=== PATIENT | female | born 2000 | race Caucasian/White ===

== ENCOUNTER 2023-05-30 16:42 | Outpatient (CLI) | payer BC, SELFPAY ==
[2023-05-30 17:40] VITALS: BP 123/74; PULSE 69; TEMP 36.6
[2023-05-30 18:26] LABS: ROM Plus Negative
== END 2023-05-30 18:48 | disposition home or self-care (01) ==
LOC: BCD 16:49 → OBS 17:53
PROVIDERS: PCP Family Medicine; Visit Provider Family Medicine
DX: O47.03 False labor before 37 completed weeks of gestation, third trimester (principal); Z3A.39 39 weeks gestation of pregnancy
CPT/HCPCS: 84112; 59025; G0378

== ENCOUNTER 2023-06-04 07:07 | Inpatient (IN) | payer BC, SELFPAY ==
[2023-06-04] VITALS (145 sets, daily range): BP systolic 112–136; BP diastolic 62–86; PULSE 0–120; RESP 16–18; TEMP 36.4–36.8; O2SAT 98
--- NOTE | 2023-06-04 07:10 | W.PM.OBHPL1 ---
Date of service: 06/04/23 Time of Service: 07:10 OB-HPI Labor/Delivery History of Present Illness Reason for Visit: Induction Chief Complaint: Scheduled Induction of Labor Indication for Induction: Post Date and Other. Comments: Partner due to travel home to [place] in 72 hrs. Several conversations in office re pros/cons of induction so he can be present for the . They are aware of risks of misoprostol and/or pitocin including FHT abnormalities/decels/ stress which might lead to inc risk of c/section. Maternal discomfort if hyperstim - could lead to dec in pit dose or d/c of pit all together. All questions answered. No URI, fever, NARVAEZ, visual issues, GDM, HTN, ROM. NST 4 days ago - cat 1 Slept some last noc - eating, bladder, bowels all nl. Given non-mediacl indication for induction, will be flexible with effort - could shift to staged with shared decision making. Plan for transition to pitocin mid day pending ctx pattern. Encourage ambulation this AM post miso dose. Informed Consent Informed Consent: Induction of Labor and Risk,Benefits,Alternatives Discussed PFSH Social History Smoking/Tobacco Use Status: Never Smoking risk assessment performed?: Yes Alcohol Intake: never Substance use type: does not use Housing: house Do you feel safe at home: Yes Do you feel safe in your relationship?: Yes History History 2 Para 1 Hx # Term Pregnancies Multiple births Hx # Pregnancies Ectopic pregnancies AB induced Hx Number of Living Children AB spontaneous Meds Allergies and Home Medications Allergies Allergy/AdvReac Type Severity Reaction Status Date / Time No Known Allergies Allergy Unverified 01/01/17 06:33 Home Medications Medication Instructions Recorded Confirmed Type B-Complex (vitamin B complex) 1 ea PO 01/01/17 History Iron (ferrous sulfate) 325 mg (65 325 mg PO 01/01/17 History mg iron) tablet (ferrous sulfate) multivitamin 1 ea PO 01/01/17 History Exam Physical Exam Vital signs: Temp Pulse Resp BP 36.4 C L 82 16 123/79 06/04/23 06:17 06/04/23 06:14 06/04/23 06:17 06/04/23 06:14 Narrative: bright, alert, comfortable HEENT - benign Lungs - clear CVS - reg, no murmur ABD - 38 cm FH, non-tender, VTX by mega EXT - no edema Detailed Labor and Delivery Exam Dilation: 2 Effacement (%): 70 station: -2 Position: OA Cervix position: anterior Consistency: soft Currie Score: Cervical Points Exam 0 1 2 3 Dilation Closed 1-2cm 3-4 cm 5-6cm Effacement 0-30% 40-50% 60-70% 80% Consistency Firm Medium Soft Station -3 -2 -1,0 +1,+2 Position Posterior Mid Anterior CURRIE Score(Cervical Ripeness Score): 8 Amniotic Membrane Status: Intact Contraction Frequency(min): none Comments: Bishops = 8 NST = Cat 1 Fetus A Heart Rate Baseline: 120 Monitor Accelerations: 15 X 15 Monitor Decelerations: None Variability: Moderate (6-25 BPM) Presentation: Vertex Categories: Category I Est. Weight: 3400 g Assessment Note: Reassuring picture Risk Assessment Risk for Shoulder Dystocia Increased Risk?: No Counseling: per pn records Risk for Pre-Eclampsia Daily Dose ASA Indicated: No Risk for Post- Hemorrhage At Risk?: No Counseled re: Active [place]: Yes [place] [facility] [place] Risks Reviewed Risks Reviewed Upon Admission: Yes
[2023-06-04] MEDS: miSOPROStol 25 MCG TAB PO (07:29)
[2023-06-04 07:41] LABS: HCT 39.6 % (36.0-46.0); HGB 13.7 g/dL (11.2-15.7); MCH 30.6 pg (27.0-33.0); MCHC 34.6 % (32.0-36.0); MCV 88 fL (80-95); MPV 9.7 fL (8.0-11.0); Platelet Count 219 10^3/uL (130-400); RBC 4.48 10^6/uL (3.93-5.22); RDW 12.7 % (11.7-14.6); RDW-SD 41.3 fL; WBC 14.35 10^3/uL (4.4-10.8)
[2023-06-04] MEDS: Normal Saline Flush 10 ML SYR IVP ×2 (08:39→12:34)
--- NOTE | 2023-06-04 11:28 | W.PM.OBNL1 ---
Date of service: 06/04/23 Time of Service: 11:28 Informed Consent Informed Consent: Induction of Labor and Risk,Benefits,Alternatives Discussed Pelvic Exam Dilation: 3 Effacement (%): 60 station: -2 Cervix Position: mid Consistency: soft Vaginal Exam Presentation: Cephalic Contractions Monitor Mode: External Contraction Frequency(min): 5-6 Contraction Duration(sec): 60 Intensity: Mild Fetus A Monitor: External (US) Heart Rate Baseline: 120 Presentation: Cephalic Variability: Moderate (6-25 BPM) Categories: Category I FHR Rhythm: Regular Characteristics: Normal Accelerations: 15 X 15 Decelerations: None Amniotic Membrane Status: Intact Assessment and Plan Assessment and plan (1) Term : Status: Acute Assessment and plan: Ami is doing well with mild contractions after one dose of miso. Some cervical change. After discussion we decided to start pitocin. FHT category 1. Will start GBS prophylaxis as well as she is a multip. Objective Abnormal lab results 06/04/23 Range/Units 07:30 WBC 14.35 H (4.4-10.8) 10^3/uL Temp Pulse Resp BP Pulse Ox 36.8 C 90 16 125/84 98 06/04/23 09:16 06/04/23 11:24 06/04/23 08:02 06/04/23 11:17 06/04/23 08:02 Laboratory Results WBC 14.35 10^3/uL (4.4-10.8) H 06/04/23 07:30 RBC 4.48 10^6/uL (3.93-5.22) 06/04/23 07:30 Hgb 13.7 g/dL (11.2-15.7) 06/04/23 07:30 Hct 39.6 % (36.0-46.0) 06/04/23 07:30 MCV 88 fL (80-95) 06/04/23 07:30 MCH 30.6 pg (27.0-33.0) 06/04/23 07:30 MCHC 34.6 % (32.0-36.0) 06/04/23 07:30 RDW 12.7 % (11.7-14.6) 06/04/23 07:30 Plt Count 219 10^3/uL (130-400) 06/04/23 07:30 MPV 9.7 fL (8.0-11.0) 06/04/23 07:30 Patient ABO/Rh A Positive 06/04/23 07:30 Antibody Screen NEGATIVE 06/04/23 07:30 Vital Signs Reviewed: Yes Subjective Patient Reports: No new Complaints Interval history since last seen: Mild contractions every 5-6 minutes Results Hemoglobin/Hematocrit: Hgb 13.7 g/dL (11.2-15.7) 06/04/23 07:30 Hct 39.6 % (36.0-46.0) 06/04/23 07:30 Abnormal Lab Findings: Abnormal Labs 06/04/23 07:30 WBC 14.35 H
[2023-06-04] MEDS: Lactated Ringers 1,000 ML 125 ML IV (12:25)
[2023-06-04] MEDS: Penicillin G POT. 5,000,000 UNITS in Normal Saline 100 ML 200 UNITS IVPB (12:26)
[2023-06-04] MEDS: Oxytocin/Normal Saline 30 UNIT/500 ML BAG 2 UNITS IV (12:27)
--- NOTE | 2023-06-04 15:37 | W.PM.OBNL1 ---
Date of service: 06/04/23 Time of Service: 15:37 Informed Consent Informed Consent: Induction of Labor and Risk,Benefits,Alternatives Discussed Pelvic Exam Dilation: 5 Effacement (%): 70 station: -2 Cervix Position: anterior Consistency: soft Vaginal Exam Presentation: Vertex Contractions Monitor Mode: External Contraction Frequency(min): 3 Contraction Duration(sec): 60 Intensity: Moderate/Strong Fetus A Monitor: External (US) Heart Rate Baseline: 120 Presentation: Vertex Variability: Moderate (6-25 BPM) Categories: Category I FHR Rhythm: Regular Characteristics: Normal Accelerations: 15 X 15 Decelerations: None and Variable Recurrence: Intermittent Amniotic Membrane Status: Intact Assessment and Plan Assessment and plan (1) : Status: Acute Assessment and plan: Ami is progressing well, now at 5/70/-2. Contractions are strong, with pit at 4u. She has had 1 dose on Penicillin. Category 1 strip, vitals normal. No concerns. Continue current plan. Qualifiers: Weeks of gestation: 40 weeks Qualified Code(s): Z3A.40 - 40 weeks gestation of Objective Abnormal lab results 06/04/23 Range/Units 07:30 WBC 14.35 H (4.4-10.8) 10^3/uL Temp Pulse Resp BP Pulse Ox 36.8 C 75 16 123/81 98 06/04/23 09:16 06/04/23 15:36 06/04/23 08:02 06/04/23 14:32 06/04/23 08:02 Laboratory Results WBC 14.35 10^3/uL (4.4-10.8) H 06/04/23 07:30 RBC 4.48 10^6/uL (3.93-5.22) 06/04/23 07:30 Hgb 13.7 g/dL (11.2-15.7) 06/04/23 07:30 Hct 39.6 % (36.0-46.0) 06/04/23 07:30 MCV 88 fL (80-95) 06/04/23 07:30 MCH 30.6 pg (27.0-33.0) 06/04/23 07:30 MCHC 34.6 % (32.0-36.0) 06/04/23 07:30 RDW 12.7 % (11.7-14.6) 06/04/23 07:30 Plt Count 219 10^3/uL (130-400) 06/04/23 07:30 MPV 9.7 fL (8.0-11.0) 06/04/23 07:30 Patient ABO/Rh A Positive 06/04/23 07:30 Antibody Screen NEGATIVE 06/04/23 07:30 Subjective Patient Reports: New Complaints Interval history since last seen: Increase in intensity of contractions, breathing through them. Results Hemoglobin/Hematocrit: Hgb 13.7 g/dL (11.2-15.7) 06/04/23 07:30 Hct 39.6 % (36.0-46.0) 06/04/23 07:30 Abnormal Lab Findings: Abnormal Labs 06/04/23:30 WBC 14.35 H
[2023-06-04] MEDS: Calcium Carbonate *TUMS* 500 MG CHEW PO (15:48)
[2023-06-04] MEDS: Oxytocin/Normal Saline 30 UNIT/500 ML BAG 95 UNITS IV (16:30)
--- NOTE | 2023-06-04 16:35 | W.OBDELIVERY ---
Date of service: 06/04/23 Time of Service: 16:35 OB Labor/ Delivery Information Baby A Delivery Delivery Method: Spontaneaous Presentation: Vertex Cephalic Position: Vertex Vertex Position: Left Occipital Anterior Breech Position: N/A Cord Description-Baby A: 3 Vessels Amniotic Fluid: Clear Estimated Blood Loss: 50 Delivery Outcome: Liveborn Infant Transferred: Remains with Mother Providers Doctor: Kyle Rios Internal Medicine Doctor: Kyle Rios Nurse: Tammy Serna Labor/Delivery Information Number of Babies in Womb: 1 Steroids Given: None Reason Steroids Not Administered: N/A Group Beta Strep: Positive Antibiotics Administered: Yes Number of Doses of Antibiotics: 1 Rubella Status: Immune Blood Type: A+ Varicella Immunity: Not Tested Born En Route: No Maternal Complications: None Shoulder Dystocia: No Stages of Labor Onset of Labor Date: 06/04/23 Complete Dilatation Date: 06/04/23 ROM Baby A: 06/04/23 ROM Baby A: 16:12 Delivery Date-Baby A: 06/04/23 Delivery Time-Baby A: 16:24 Placenta Delivery Date-Baby A: 06/04/23 Placenta Delivery Time-Baby A: 16:29 Labor-Stage 3 Duration: 5 minutes Placenta Cultured: No Placenta Status: Delivered Baby A Gender: Female Gestational Status: Term (39-41.6 wks) Gestational Age in Weeks/Days: 40 Weeks and 2 Days Score-1 Minute Interval(Baby A) Heart Rate-1 minute: 100 BPM or Greater Respiratory Effort- 1 minute: Slow Respiration/Weak Cry Muscle Tone-1 minute: Active Movement Reflex Response-1 minute: Prompt Response Color-1 minute: Pallor or Cyanosis Score-5 Minute Interval(Baby A) Heart Rate- 5 minute: 100 BPM or Greater Respiratory Effort-5 minute: Spontaneous/Strong Cry Muscle Tone-5 minute: Active Movement Reflex Response-5 minute: Prompt Response Color-5 minute: Bluish Hands or Feet Note: Emilys contractions had intensified and she asked to be checked. She had progressed to 7cm and had a bulging bag that was easily ruptured. Large amount of clear fluid came. Babies head came down immediately. She then progressed quite quickly to complete. FHT was category 1 throughout. She pushed for only 5 minutes and delivered a vigorous baby girl in KELSY position. Baby was immediately put on moms chest. After pulsations had stopped, cord was clamped and cut. Placenta was delivery intact, 3 vessel cord. Pitocin run open during placental delivery. There were no lacerations. Minimal bleeding. Unfortunately only 1 dose of antibiotics was given so she will need to be monitored for 48 hours. Otherwise anticipate routine post care. She intends to breast feed and baby has already latched.
[2023-06-04] MEDS: Ibuprofen 600 MG TAB PO ×2 (17:23→23:55)
[2023-06-04] MEDS: Acetaminophen 325 MG TAB 650 MG PO ×2 (17:23→23:55)
[2023-06-04] MEDS: Hamamelis Leaf/Glycerin 100 EACH BOX PR (17:24)
[2023-06-04] MEDS: Dibucaine 1% 28 GM TUBE TP (17:24)
[2023-06-05 01:13] VITALS: BP 121/64; PULSE 90; RESP 18; TEMP 36.7
[2023-06-05 08:29] VITALS: BP 113/73; PULSE 91; TEMP 36.8
[2023-06-05] MEDS: Acetaminophen 325 MG TAB 650 MG PO ×2 (08:33→18:51)
[2023-06-05] MEDS: Ibuprofen 600 MG TAB PO ×2 (08:33→18:52)
--- NOTE | 2023-06-05 15:37 | W.PM.OBPNV1 ---
Date of service: 06/05/23 Time of Service: 15:37 Subjective Subjective Interval history: mom is pleased, Got shower, doing all self care Expected perineal discomfort - tylenol effective BF off to good start - got some coaching on latch Lochia decreasing UO good no pedal edema O: Bright, rested, comfortable Abd - soft, non tender Ut 2 below uterus, non-tender affect and energy good no pedal edema A: Excellent pp course plan d/c tomorrow with infant cont BF support discuss FP needs prior to d/c S. [place] Exam Physical Exam Vital signs: Temp Pulse Resp BP Pulse Ox 36.8 C 91 H 18 113/73 98 06/05/23 08:29 06/05/23 08:29 06/05/23 01:13 06/05/23 08:29 06/04/23 08:02 Results Hemoglobin/Hematocrit: Hgb 13.7 g/dL (11.2-15.7) 06/04/23 07:30 Hct 39.6 % (36.0-46.0) 06/04/23 07:30 Abnormal Lab Findings: Abnormal Labs 06/04/23 07:30 WBC 14.35 H
[2023-06-05 20:19] VITALS: BP 110/73; PULSE 91; RESP 18; TEMP 36.7
[2023-06-06 02:00] VITALS: BP 113/77; PULSE 73; TEMP 36.7
--- NOTE | 2023-06-06 08:28 | W.PM.OBDISCH ---
Date of service: 06/06/23 Time of Service: 08:28 DS: Diagnosis Discharge Diagnosis (1) : Status: Acute Asessment and Plan: term . Straightforward pp course Breat feeding off to great start. Doing all self care PO intake, bowels, urine all nl. Expected utering cramping with nursing and dec in lochia O: Abd - soft, non tender firm ut 2-3 below umb no edema skin - nl A: Nl pp course BF ging well no evidence pp depression P: F/U set in 48 hrs - will administer [place] Dep screen Breast pump in place SCristel Payne Discharge Plan Disposition Condition: Good Discharge Details Reason For Visit: Post Dates Admit Date/Time: 06/04/23 07:07 Admit Provider: Hasmukh Payne Attending Provider: Hasmukh Payne Primary Care Provider: Hasmukh Payne Hospital Course Hospital Course: as above Discussed family planning - no current plans beyond nursing - Had SE with OCP's Home Meds and New Rx's Prescriptions: No Action ferrous sulfate [Iron (ferrous sulfate)] 325 MG tablet 325 mg PO vitamin B complex [B-Complex] 1 EACH tablet 1 ea PO multivitamin 1 EACH capsule 1 ea PO Discharge Instructions Activity:: Activity as Tolerated Activity:: Activity as Tolerated Equipment/Supplies:: breast pump Diet:: As Tolerated Discharge Data Discharge Physician: Hasmukh Payne OB:DS Summary Summary Vaginal Delivery Method: Spontaneaous Episiotomy Description: None Laceration Description: None Laceration Extension: N/A Contraception Discussed Contraception Discussed: Yes, [place] Infant Gender-Baby A: Female weight: 3240 g Status at Discharge Functional status at discharge: independent ambulation Overall status at discharge: patient is back to baseline Mental Status: mental status grossly normal Speech and Movement: speech and movement normal Mood: congruent mood Affect: normal affect Quality:SDOH Health Related Social Needs: No Data to Display Exam Physical Exam Vital signs: Temp Pulse Resp BP Pulse Ox 36.7 C 73 18 113/77 98 06/06/23 02:00 06/06/23 02:00 06/05/23 20:19 06/06/23 02:00 06/04/23 08:02 PFSH All Active Problems (Updated 06/04/23 @ 15:39 by Kyle Rios) (Acute) Term (Acute) Social History Smoking/Tobacco Use Status: Never Smoking risk assessment performed?: Yes Alcohol Intake: never Drug use: Never Substance use type: does not use Housing: house Do you feel safe at home: Yes Do you feel safe in your relationship?: Yes History History 2 Para 1 Hx # Term Pregnancies Multiple births Hx # Pregnancies Ectopic pregnancies AB induced Hx Number of Living Children AB spontaneous DS: Data Vitals/I&O Vitals and I&O: Vital Signs Temperature 36.7 C 06/06/23 02:00 Temperature Source Oral 06/06/23 02:00 Pulse 73 06/06/23 02:00 Pulse Rhythm Regular 06/05/23 20:19 Respiratory Rate 18 06/05/23 20:19 Blood Pressure 113/77 06/06/23 02:00 Blood Pressure Mean 89 06/06/23 02:00 Pulse Oximetry 98 06/04/23 08:02 Oxygen Delivery Method Room Air 06/04/23 08:02 Oxygen Flow Rate 0 06/04/23 08:02 Pain Level 3 06/04/23 23:55 Intake & Output 06/05/23 06/05/23 06/06/23 11:59 23:59 11:59 Output Total 125 / 125 Balance -125 / -125 Output: Urine 125 / 125 Other: Urine Color Pale
[2023-06-06 09:14] VITALS: BP 112/76; PULSE 98; RESP 16; TEMP 37.1
== END 2023-06-06 12:45 | disposition home or self-care (01) | DRG 807 ==
PROVIDERS: Admitting Provider Family Medicine; PCP Family Medicine; Visit Provider Family Medicine
DX: O48.0 Post-term pregnancy (principal); Z37.0 Single live birth; Z3A.40 40 weeks gestation of pregnancy
CPT/HCPCS: 00123; 36415; 85027; 86850; 86900; 86901; 59200; J2540; J3490

== ENCOUNTER 2023-06-19 11:11 | Emergency (ER) | payer BC, SELFPAY ==
[2023-06-19 11:15] VITALS: BP 131/89; PULSE 60; RESP 16; O2SAT 97
--- NOTE | 2023-06-19 11:23 | ED.GENADUL_ITS ---
Discharge Plan Disposition Patient Disposition: Home Condition: Stable Discharge Details Clinical Impression: Migraine syndrome Primary Care Provider: Hasmukh Payne ED Provider: Esteban Choi Home Meds and New Rx's Prescriptions: No Action multivitamin 1 EACH capsule 1 ea PO DAILY Discharge Instructions Instructions: Metoclopramide (By mouth), Sumatriptan (By mouth), Migraine Headache (ED) Additional Instructions: You were seen in the emergency department for your migraine syndrome and right- sided headache. There was no evidence for preeclampsia or significant infection on your laboratory studies, your electrolytes are within normal limits I do not suspect infectious etiology, you are neurologically intact. We provided you with IV Tylenol as well as a headache and nausea medicine called Reglan which should be taken with Benadryl, take 1000 mg of Tylenol every 6 hours, residential in between Tylenol doses take 400 mg of ibuprofen also every 6 hours. Take the provided metoclopramide or Reglan with a 25 mg tablet of Benadryl later this evening, you can also take the second dose of the 25 mg tablet of sumatriptan which is a migraine prevention medicine that we discussed. Please return to the emergency department for any severe increase in headache, intractable nausea or vomiting, we discussed that your [employer] would be following up with you in the next couple days you may return to the ER, we discussed possibility of CT head without contrast today but you will watchfully wait at home and return for any worsening or changes for possible CT scan at that time. Referrals: Kyle Rios [ CONSULTING PHYSICIAN] - Hasmukh Payne [Primary Care Provider] - Discharge Data Discharge Date/Time-TO BE ENTERED AT DEPARTURE: 06/19/23 14:39 HPI General Date/Time Provider Initiated Documentation: 06/19/23 11:23 . HPI Narrative: 23 year-old female presents to ED today by POV/ambulating with a chief complaint of persistent headache for a week, worse since last night, pain causing some na usea/vomiting. Quality described as waves of headache pain R sided, has history of migraines, no radiation to chest pain, palpitations, active vomiting, visual changes, syncope. Severity is described as 8-9/10. Palliating factors include OTC analgesics without relief. Provoking factors include nothing specific. Events leading up to the incident/Associated Symptoms: Patient is two weeks post- from her second child, uncomplicated . Patient not anticoagulated. Related Data Home Medications Medication Instructions Recorded Confirmed multivitamin 1 ea PO DAILY 01/01/17 06/19/23 Allergies Allergy/AdvReac Type Severity Reaction Status Date / Time No Known Allergies Allergy Unverified 06/19/23 11:17 General Stated Complaint: Headache MILLY: 3 Review of Systems All systems reviewed & are unremarkable except as noted in HPI and below Exam Narrative Exam Narrative: GENERAL APPEARANCE: Well-nourished, non-toxic, awake and alert, atraumatic, no acute distress. SKIN: Warm, pink, dry, intact, without rashes/lesions/ulcerations. HEAD: Normocephalic, atraumatic, normal hair distribution for gender/age, no tenderness to light touch in R temporal area EYES: Pupils PERRLA, EOMs intact without nystagmus, normal conjunctiva, no exudates on lids/lashes. ENT: Nares patent, no circumoral cyanosis, no facial swelling NECK: Supple, trachea midline, painless cervical ROM. LUNGS/CHEST: Lungs CTA bilaterally- no rhonchi/rales/wheezes diffusely, non- labored respirations, normal A/P diameter, symmetrical expansion, no chest wall deformity HEART (CV/PV): Regular rate and rhythm without murmur, no peripheral edema, no JVD. ABDOMEN: Soft, non-distended, no guarding. MSK: Normal ROM, no swelling/deformity to bilateral UEs or LEs, moving all extremities without weakness, no cyanosis, spine midline without tenderness, normal curvature. NEURO: Mental Status AAOx4 - alert to person, place, time, events No facial droop, no forehead involvement, no dysmetria with cerebellar testing Motor: No focal weakness - strength 5/5 in bilateral UEs and LEs, proximal and distal, symmetric. Sensory: sensation intact to light touch globally. Gait normal: patient ambulated without ataxia into ED room. PSYCH: euthymic, cooperative, pleasant, appropriate speech Course Vital Signs Vital signs: Vital Signs Pulse 60 06/19/23 11:15 Respiratory Rate 16 06/19/23 11:15 Blood Pressure 131/89 06/19/23 11:15 Pulse Oximetry 97 06/19/23 11:15 Pulse 60 06/19/23 11:15 Respiratory Rate 16 06/19/23 11:15 Blood Pressure 131/89 06/19/23 11:15 Blood Pressure Position Sitting 06/19/23 11:15 Pulse Oximetry 97 06/19/23 11:15 Oxygen Delivery Method Room Air 06/19/23 11:15 Oxygen Flow Rate 0 06/19/23 11:15 Pain Level 9 06/19/23 11:15 Medical Decision Making This dictation utilizes [id number] dictation software and may contain unedited grammatical errors. 23 y/o F presents to ED today with a chief complaint of NARVAEZ for the past week, worse since last night with nausea/vomiting- is two weeks post-, concern for preeclampsia by OBGYN so encouraged ED evaluation. Patient had an uncomplicated , second child, denies fever/neck stiffness, palpitations. Patients' medical history: negative, otherwise healthy. Family and social history: noncontributory. Pertinent exam findings / vital signs include normotensive, benign cardiopulmonary exam, neuro intact, no tenderness to light touch at R temporal area. Differential / pathologies of concern include preeclampsia, migraine syndrome, temporal arteritis/vasculitis, tension NARVAEZ. Diagnostic studies of: -CBC, CMP, Lactate, Magnesium, CRP/ESR, UA. -CBC no leukocytosis -CMP wnl -Mg++ wnl -inflammatory markers negative -UA no proteinuria Interventions of: -IVF, Tylenol, Toradol, Reglan, Benadryl, Sumatriptan. ED Course/Assessment/Plan: 23-year-old female who is 2 weeks presents with headache for about a week that has become progressively worse since last night with some vomiting about 7 times since last night. There is no sign of preeclampsia on her workup, she has no scalp tenderness to light touch and there is no signs of infectious etiology or meningismus. Patient did not have an epidural and had an uncomplicated , it is her second child. I provided her with migraine medications of Tylenol, Reglan, Toradol, Benadryl, IV fluids, and sumatriptan, the patient states her headache has not changed significantly, she has a normal neuroexam. We discussed possibility of CT head without contrast but she wanted to watchfully wait and will return for any failure to resolve or worsening for head CT at that time to avoid unnecessary radiation. There is no protein in her urine, I did follow-up by phone with her [employer] who will follow-up with the patient in the next couple days. Findings not consistent with preeclampsia, meningismus, vasculitis, neurologic abnormality. Disposition of Migraine Syndrome. Patient verbalized understanding of the plan and return to ED criteria and engaged in shared decision making. Medical Records Medical records reviewed: Yes I reviewed the patient's medical records. Lab Data Lab results reviewed: Yes I reviewed the patient's lab results. Labs: Laboratory Tests Range/Units 06/19/23 06/19/23 11:37 13:57 WBC (4.4-10.8) 10^3/uL 7.14 RBC (3.93-5.22) 10^6/uL 5.03 Hgb (11.2-15.7) g/dL 15.1 Hct (36.0-46.0) % 44.8 MCV (80-95) fL 89 MCH (27.0-33.0) pg 30.0 MCHC (32.0-36.0) % 33.7 RDW (11.7-14.6) % 11.7 Plt Count (130-400) 10^3/uL 332 MPV (8.0-11.0) fL 9.1 Immature Gran % 0.1 Neutrophils % 48.8 Lymphocytes % 40.6 Monocytes % 6.6 Eosinophils % 2.8 Basophils % 1.1 Nucleated RBC % (0.0-0.3) % 0.0 Absolute Neutrophils (1.2-6.7) 10^3/uL 3.48 Absolute Lymphocytes (1.2-3.4) 10^3/uL 2.90 Absolute Monocytes (0.1-0.8) 10^3/uL 0.47 Absolute Eosinophils (0.0-0.7) 10^3/uL 0.20 Absolute Basophils (0.0-0.2) 10^3/uL 0.08 ESR (0-20) mm/hr 20 VBG Lactate (0.6-1.4) mmol/L 1.0 Sodium (136-145) mmol/L 139 Potassium (3.5-5.1) mmol/L 4.2 Chloride (98-107) mmol/L 103 Carbon Dioxide (21.0-32.0) mmol/L 25.5 Anion Gap (3-11) mmol/L 10.5 BUN (7-18) mg/dL 12 Creatinine (0.55-1.02) mg/dL 0.9 Est GFR (CKD-EPI 2020) (mL/min/1.73m2) 91.55 Glucose (74-106) mg/dL 73 L Calcium (8.5-10.1) mg/dL 9.2 Magnesium (1.8-2.4) mg/dL 2.1 Total Bilirubin (0.2-1.0) mg/dL 0.4 AST (15-37) U/L 18 ALT (14-59) U/L 34 Alkaline Phosphatase (46-116) U/L 170 H C-Reactive Protein (<or=0.5) mg/dL < 0.50 Total Protein (6.4-8.2) g/dL 7.6 Albumin (3.4-5.0) g/dL 3.4 Lipase (16-77) U/L 62 Urine Color (Yellow) Yellow Urine Clarity (Clear) Clear Urine pH (5-8) 6.5 Ur Specific [place] (1.005-1.025) 1.010 Urine Protein (Neg-Trace) mg/dL Negative Urine Ketones (Negative) mg/dL Negative Urine Blood (Negative) Trace-intact H Urine Nitrite (Negative) Negative Urine Bilirubin (Negative) Negative Urine Urobilinogen (Up to 0.2) mg/dL 0.2 Ur Leukocyte Esterase (Negative) Negative Urine RBC (0-2) HPF 0-2 Urine WBC (0-5) HPF 0-2 Ur Epithelial Cells (Negative) HPF Rare Urine Crystals (Negative) HPF Negative Urine Bacteria (Negative) HPF Negative Urine Casts (Negative) LPF Negative Urine Mucus (Negative) Negative Ur Culture Indicated? No Urine Glucose (Negative) mg/dL Negative Quality:SDOH Health Related Social Needs: No Data to Display PFSH All Active Problems (Updated 06/19/23 @ 14:24 by NARCISO Ness) Migraine syndrome (Acute) Social History Smoking/Tobacco Use Status: Never Smoking risk assessment performed?: Yes Alcohol Intake: never Drug use: Never Substance use type: does not use Housing: house Do you feel safe at home: Yes Do you feel safe in your relationship?: Yes History History 2 Para 1 Hx # Term Pregnancies Multiple births Hx # Pregnancies Ectopic pregnancies AB induced Hx Number of Living Children AB spontaneous
[2023-06-19 11:32] VITALS: PULSE 67; RESP 15; O2SAT 99
[2023-06-19] MEDS: diphenhydrAMINE 50 MG/ML VIAL 25 MG IVP (11:49)
[2023-06-19] MEDS: ACETAMINOPHEN 1,000 MG/100 ML BTL 400 MG IVPB (11:50)
[2023-06-19] MEDS: Metoclopramide 10 MG/2 ML VIAL IVP (11:50)
[2023-06-19] MEDS: Lactated Ringers 1,000 ML 1000 ML IV (11:50)
[2023-06-19 12:12] LABS: Abs Immature Grans 0.01 10^3/uL (0.0-0.06); Absolute Basophil Count 0.08 10^3/uL (0.0-0.2); Absolute Monocyte Count 0.47 10^3/uL (0.1-0.8); Absolute Neutrophil Count 3.48 10^3/uL (1.2-6.7); Basophils % 1.1; Eosinophils % 2.8; HCT 44.8 % (36.0-46.0); HGB 15.1 g/dL (11.2-15.7); Immature Grans % 0.1; Lymphocytes % 40.6; MCHC 33.7 % (32.0-36.0); MCV 89 fL (80-95); MPV 9.1 fL (8.0-11.0); Monocytes % 6.6; Neutrophils % 48.8; Platelet Count 332 10^3/uL (130-400); RBC 5.03 10^6/uL (3.93-5.22); RDW 11.7 % (11.7-14.6); RDW-SD 37.4 fL; WBC 7.14 10^3/uL (4.4-10.8)
[2023-06-19 12:19] LABS: ESR 20 mm/hr (0-20)
[2023-06-19 12:38] LABS: ALT 34 U/L (14-59); AST 18 U/L (15-37); Albumin 3.4 g/dL (3.4-5.0); Alkaline Phosphatase 170 U/L (46-116); Anion Gap 10.5 mmol/L (3-11); BUN 12 mg/dL (7-18); Bilirubin, Total 0.4 mg/dL (0.2-1.0); CO2 25.5 mmol/L (21.0-32.0); CREATININE 0.9 mg/dL (0.55-1.02); Calcium 9.2 mg/dL (8.5-10.1); Chloride 103 mmol/L (98-107); Estimated GFR 91.55 (mL/min/1.73m2); Glucose 73 mg/dL (74-106); Lipase 62 U/L (16-77); Magnesium 2.1 mg/dL (1.8-2.4); Potassium 4.2 mmol/L (3.5-5.1); Sodium 139 mmol/L (136-145); Total Protein 7.6 g/dL (6.4-8.2)
[2023-06-19 12:39] LABS: C-Reactive Protein < 0.50 mg/dL (<or=0.5)
[2023-06-19] MEDS: Ketorolac 10 MG TAB PO (13:22)
[2023-06-19] MEDS: SUMAtriptan 25 MG TAB PO (13:22)
[2023-06-19 14:02] LABS: Bilirubin Negative (Negative); Blood Trace-intact (Negative); Clarity Clear (Clear); Glucose Negative (Negative); Ketones Negative (Negative); Leukocyte Esterase Negative (Negative); Nitrite Negative (Negative); Urobilinogen 0.2 mg/dL (Up to 0.2); pH 6.5 (5-8)
[2023-06-19 14:09] LABS: Bacteria Negative HPF (Negative); C & S Indicated? No; Casts Negative LPF (Negative); Crystals Negative HPF (Negative); Epithelial Cells Rare HPF (Negative); Mucus Negative (Negative); RBC 0-2 HPF (0-2); WBC 0-2 HPF (0-5)
[2023-06-19 14:34] VITALS: PULSE 64; RESP 16; O2SAT 100
== END 2023-06-19 14:39 | disposition home or self-care (01) ==
PROVIDERS: Emergency Provider Physician Assistant; PCP Family Medicine
DX: O90.89 Other complications of the puerperium, not elsewhere classified (principal); G43.909 Migraine, unspecified, not intractable, without status migrainosus
CPT/HCPCS: 36415; 80053; 83690; 85652; 96361; 96374; 96375; 99284; 81003; 81015; 83605; 83735; 85025; 86140; J0131; J1200; J2765